=== PATIENT | female | born 1940 | race Caucasian/White ===

== ENCOUNTER → 2022-12-17 | Outpatient (CLI) | payer MEDICARE, BC ==
[~2022-12-17] MED LIST: IOPAMIDOL 370 MG/ML 100 ML INFUS..BTL INJ ONE; SODIUM CHLORIDE 0.9% 250ML 250 ML ONE
[2022-12-17 16:23] LABS: CREATININE, SERUM 0.87 mg/dL (0.57-1.11)
== END ==
LOC: CT 15:14
PROVIDERS: ATTEND Urology
DX: R31.0 Gross hematuria (principal)
CPT/HCPCS: 36415; 74178; 82565; 84520; J7050; Q9967